=== PATIENT | female | born 2000 | race Caucasian/White ===

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

== ENCOUNTER 2020-12-21 13:35 | Emergency (ER) | payer OTHER ==
[2020-12-21 15:59] VITALS: TEMP 99.7
[2020-12-21] MEDS ORDERED: DIPH,PERTUS(ACELL)TETVAC-LF 0.5 ML VIAL IM ONE (16:35)
[2020-12-21] MEDS ORDERED: SODIUM CHLORIDE 0.9% 1,000 ML IV STA (16:35)
[2020-12-21] MEDS ORDERED: HYDROcodone/APAP 5-325MG 1 EACH TAB PO STA (16:37)
[2020-12-21] MEDS ORDERED: KETOROLAC 15 MG/ML 1 ML VIAL IVP STA (16:37)
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
[2020-12-21 17:08] LABS: Basophils % (A) 0 %; Eosinophils # (A) 0.1 k/uL (0-0.7); Eosinophils % (A) 1 %; HCT 40.7 % (34.0-46.0); HGB 13.8 gm/dL (11.4-16.0); Lymphocytes # (A) 2.8 k/uL (1.0-4.8); Lymphocytes % (A) 29 %; MCH 29.4 pg (25.0-35.0); MCHC 33.9 g/dL (31.0-37.0); MCV 86.8 fL (80.0-100.0); Mean Platelet Volume 7.9; Monocytes # (A) 0.4 k/uL (0-1.0); Monocytes % (A) 4 %; Neutrophils # (A) 6.5 k/uL (1.3-7.7); Neutrophils % (A) 65 %; Platelet Count 278 k/uL (150-450); RBC 4.69 m/uL (3.80-5.40); RDW 12.8 % (11.5-15.5)
[2020-12-21 17:17] LABS: ALT 16 U/L (4-34); AST 21 U/L (14-36); African American GFR (CKD) >90 (>60 ml/min/1.73 sqM); Albumin 4.5 g/dL (3.5-5.0); Alkaline Phosphatase 70 U/L (38-126); Anion Gap 10 mmol/L; Blood Urea Nitrogen 9 mg/dL (7-17); Calcium 9.6 mg/dL (8.4-10.2); Carbon Dioxide 22 mmol/L (22-30); Chloride 105 mmol/L (98-107); Glucose 104 mg/dL (74-99); Non-African American GFR(CKD) >90 (>60 ml/min/1.73 sqM); Sodium 137 mmol/L (137-145); Total Bilirubin 0.8 mg/dL (0.2-1.3); Total Protein 7.3 g/dL (6.3-8.2)
[2020-12-21 17:21] LABS: INR 0.9 (<1.2); Partial Thromboplastin Time 22.8 sec (22.0-30.0); Prothrombin Time 9.8 sec (9.0-12.0)
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
[2020-12-21 18:10] VITALS: BP 103/64; PULSE 64; RESP 20
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
[2020-12-21 18:28] LABS: Appearance,Urine Clear (Clear); Bilirubin,Urine Negative (Negative); Blood,Urine Negative (Negative); Color,Urine Light Yellow; Glucose,Urine (UA) Negative (Negative); Ketones,Urine Negative (Negative); Leukocyte Esterase,Urine Negative (Negative); Nitrite,Urine Negative (Negative); Protein,Urine Negative (Negative); Specific Gravity,Urine 1.008 (1.001-1.035); Urobilinogen,Urine <2.0 mg/dL (<2.0)
[2020-12-21 18:40] LABS: Amphetamine Screen,Urine Not Detected (NotDetected); Barbiturate Screen,Urine Not Detected (NotDetected); Benzodiazepines Screen,Urine Not Detected (NotDetected); Cocaine Screen,Urine Not Detected (NotDetected); Methadone Screen, Urine Not Detected (NotDetected); Opiate Screen,Urine Detected (NotDetected); Oxycodone Screen, Urine Not Detected (NotDetected); Phencyclidine Screen,Urine Not Detected (NotDetected); Tricyclic Antidepressant,Urine Not Detected (NotDetected); Urn Cannabinoid Scrn Detected (NotDetected)
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
== END 2020-12-21 20:06 | disposition left against medical advice (07) ==
LOC: EC 13:35
DX: S02.2XXA Fracture of nasal bones, initial encounter for closed fracture (principal); S30.0XXA Contusion of lower back and pelvis, initial encounter; S60.021A Contusion of right index finger without damage to nail, initial encounter; S60.031A Contusion of right middle finger without damage to nail, initial encounter; S00.12XA Contusion of left eyelid and periocular area, initial encounter; S80.211A Abrasion, right knee, initial encounter; S80.212A Abrasion, left knee, initial encounter; S70.211A Abrasion, right hip, initial encounter; F12.90 Cannabis use, unspecified, uncomplicated; V48.6XXA Car passenger injured in noncollision transport accident in traffic accident, initial encounter; Y92.410 Unspecified street and highway as the place of occurrence of the external cause
CPT/HCPCS: 36415; 93005; 80053; 84484; 85025; 85610; 85730; 81003; 81025; 80306; 72110; 72170; 73130; 71045; 72125; 70486; 70450; 99284; 96374; 96361; J1885

== ENCOUNTER 2022-08-28 05:18 | Emergency (ER) | payer OTHER ==
[2022-08-28] MEDS ORDERED: LORazepam 2 MG/ML INJ IV STA ×3 (05:21→11:51)
[2022-08-28] MEDS ORDERED: SODIUM CHLORIDE 0.9% 1,000 ML IV STA ×2 (05:21)
[2022-08-28] MEDS ORDERED: diphenhydrAMINE 50 MG/ML 1 ML VIAL IVP STA (05:36)
[2022-08-28] MEDS ORDERED: ZIPRASIDONE 20 MG VIAL IM STA (05:56)
[2022-08-28 05:57] LABS: ALT 22 U/L (4-34); AST 26 U/L (14-36); African American GFR (CKD) >90 (>60 ml/min/1.73 sqM); Albumin 4.6 g/dL (3.5-5.0); Alkaline Phosphatase 50 U/L (38-126); Anion Gap 14 mmol/L; Blood Urea Nitrogen 10 mg/dL (7-17); Carbon Dioxide 20 mmol/L (22-30); Chloride 109 mmol/L (98-107); Glucose 117 mg/dL (74-99); Lipase 39 U/L (23-300); Magnesium 1.8 mg/dL (1.6-2.3); Non-African American GFR(CKD) >90 (>60 ml/min/1.73 sqM); Phosphorus 4.7 mg/dL (2.5-4.5); Potassium 4.1 mmol/L (3.5-5.1); Sodium 143 mmol/L (137-145); Total Bilirubin 0.2 mg/dL (0.2-1.3); Total Protein 7.4 g/dL (6.3-8.2)
--- NOTE | 2022-08-28 05:57 | ED ---
Altered Mental Status HPI - General Source: RN notes reviewed, old records reviewed Limitations: no limitations - History of Present Illness MD Complaint: altered mental status, confusion, intoxication -: unknown Severity: severe Consistency of Symptoms: getting worse Context: alcohol abuse, drug abuse, history of similar presentation Associated Symptoms: denies other symptoms Treatments Prior to Arrival: IV fluid <Mayo Salcido - Last Filed: 08/28/22 06:16> <Meagan Yu - Last Filed: 08/31/22 21:01> - General Stated Complaint: ETOH, Right Leg Laceration Time Seen by Provider: 08/28/22 05:19 - History of Present Illness Initial Comments: This is a 22-year-old female DF for evaluation. This patient Dese for evaluation regards to severe psychiatric illness severe intoxication. Patient is not taking anything that makes sense here in the [place] and screaming incoherently needing a restraint both physically and chemically (Mayo Salcido) - Related Data Home Medications Medication Instructions Recorded Confirmed Iron 18 mg PO DAILY 02/13/19 08/30/22 Vit No.180/Iron/Folic 1 each PO DAILY 06/07/19 08/30/22 [ Plus Tablet] ARIPiprazole [Abilify] 15 mg PO DAILY 08/30/22 08/30/22 Prazosin [Minipress] 2 mg PO HS 08/30/22 08/30/22 busPIRone HCl [Buspar] 5 mg PO BID 08/30/22 08/30/22 hydrOXYzine pamoate [Vistaril] 50 mg PO HS 08/30/22 08/30/22 Allergies Allergy/AdvReac Type Severity Reaction Status Date / Time Penicillins Allergy Rash/Hives Verified 08/30/22 00:38 Review of Systems ROS Other: All systems not noted in ROS Statement are negative. <Mayo Salcido - Last Filed: 08/28/22 06:16> ROS Other: All systems not noted in ROS Statement are negative. <Meagan Yu - Last Filed: 08/31/22 21:01> ROS Statement: Those systems with pertinent positive or pertinent negative responses have been documented in the HPI. Past Medical History Past Medical History: No Reported History Additional Past Medical History / Comment(s): Anemia History of Any Multi-Drug Resistant Organisms: None Reported Past Surgical History: No Surgical Hx Reported Past Anesthesia/Blood Transfusion Reactions: No Reported Reaction Past Psychological History: Anxiety, Depression Smoking Status: Never smoker Past Alcohol Use History: None Reported Past Drug Use History: Marijuana - Past Family History Father History Unknown: Yes Family Medical History: No Reported History <Mayo Salcido - Last Filed: 08/28/22 06:16> General Exam Limitations: altered mental status, physical limitation General appearance: alert, appears intoxicated, anxious, in distress Head exam: Present: atraumatic, normocephalic, normal inspection Eye exam: Present: normal appearance, PERRL, EOMI. Absent: scleral icterus, conjunctival injection, periorbital swelling ENT exam: Present: normal exam, mucous membranes moist Neck exam: Present: normal inspection. Absent: tenderness, meningismus, lymphadenopathy Respiratory exam: Present: normal lung sounds bilaterally. Absent: respiratory distress, wheezes, rales, rhonchi, stridor Cardiovascular Exam: Present: regular rate, normal rhythm, normal heart sounds. Absent: systolic murmur, diastolic murmur, rubs, gallop, clicks GI/Abdominal exam: Present: soft, normal bowel sounds. Absent: distended, tenderness, guarding, rebound, rigid Extremities exam: Present: normal inspection, full ROM, normal capillary refill. Absent: tenderness, pedal edema, joint swelling, calf tenderness Back exam: Present: normal inspection Neurological exam: Present: alert, oriented X3, CN II-XII intact Psychiatric exam: Present: normal affect, normal mood Skin exam: Present: warm, dry, intact, normal color. Absent: rash <Mayo Salcido Manan - Last Filed: 08/28/22 06:16> Limitations: altered mental status, physical limitation General appearance: alert, appears intoxicated, anxious, in distress Head exam: Present: atraumatic, normocephalic, normal inspection Eye exam: Present: normal appearance, PERRL, EOMI. Absent: scleral icterus, conjunctival injection, periorbital swelling ENT exam: Present: normal exam, mucous membranes moist Neck exam: Present: normal inspection. Absent: tenderness, meningismus, lymphadenopathy Respiratory exam: Present: normal lung sounds bilaterally. Absent: respiratory distress, wheezes, rales, rhonchi, stridor Cardiovascular Exam: Present: regular rate, normal rhythm, normal heart sounds. Absent: systolic murmur, diastolic murmur, rubs, gallop, clicks GI/Abdominal exam: Present: soft, normal bowel sounds. Absent: distended, tenderness, guarding, rebound, rigid Extremities exam: Present: full ROM, normal capillary refill. Absent: tenderness, pedal edema, joint swelling, calf tenderness Back exam: Present: normal inspection Neurological exam: Present: alert Psychiatric exam: Present: agitated Skin exam: Present: other (Multiple lacerations to the right lower extremity, three of which have visible subcutaneous tissue, measuring approximately 5 cm, 6 cm, and 2 cm respectively.) <Meagan Yu - Last Filed: 08/31/22 21:01> - General Exam Comments Initial Comments: Patient has small lacerations throughout entire body, right hip right in both legs (Mayo Salcido) Course <Mayo Salcido - Last Filed: 08/28/22 06:16> Vital Signs 08/28/22 08/28/22 08/28/22 05:21 07:49 12:47 Temperature 98.6 F 98.4 F Pulse Rate 128 H 78 81 Respiratory 16 20 17 Rate Blood Pressure 136/70 101/61 94/55 O2 Sat by Pulse 98 98 97 Oximetry - Reevaluation(s) Reevaluation #1: 08/28/22 06:18 Record is reviewed (Mayo Salcido) Reevaluation #2: 08/28/22 06:18 Patient is needing both hcemical and physical restraints (Mayo Salcido) Reevaluation #4: 08/28/22 06:18 Was pt. sent in by a medical professional or institution? @ -no Did you speak to anyone other than the patient for history? @ -no Did you review nursing and triage notes? @ -agree Were old charts reviewed? @ -yes Differential Diagnosis? @ -prior EKG interpreted by me (3pts min.)? @ -yes X-rays interpreted by me (1pt min.)? @ -yes CT interpreted by me (1pt min.)? @ -no U/S interpreted by me (1pt. min.)? @ -no What testing was considered but not performed? (CT, X-rays, U/S, labs)? Why? @ -no What meds were considered but not given? Why? @ -no Did you discuss the management of the patient with other professionals? @ -no Did you reconcile home meds? @ -no Was smoking cessation discussed for >3mins.? @ -no Was critical care preformed (if so, how long)? @ -no Were there social determinants of health that impacted care today? How? (Homelessness, low income, unemployed, alcoholism, drug addiction, transportation, low edu. Level, literacy, decrease access to med. care, penitentiary, rehab)? @ -no Was there de-escalation of care discussed even if they declined? (Discuss DNR or withdrawal of care, Hospice)? @ -no What co-morbidities impacted this encounter? (DM, HTN, Smoking, COPD, CAD, Cancer, CVA, Hep., AIDS, mental health diagnosis, sleep apnea, morbid obesity)? @ -none Was patient admitted / discharged? @ - Undiagnosed new problem with uncertain prognosis? @ -no Drug Therapy requiring intensive monitoring for toxicity (Heparin, Nitro, Insulin, Cardizem)? @ -no Were any procedures done? @ -no Diagnosis/symptom? @ - Acute, or Chronic, or Acute on Chronic? @ -acute Uncomplicated (without systemic symptoms) or Complicated (systemic symptoms)? @ -complicated Side effects of treatment? @ -no Exacerbation, Progression, or Severe Exacerbation] @ -no Poses a threat to life or bodily function? @ -yes (Mayo Salcido) Procedures - Laceration Laceration #1 Consent Obtained: verbal consent Indication: laceration Site: lower extremity Size (cm): 5 Description: linear Depth: simple, single layer Anesthetic Used: lidocaine 1% Anesthesia Technique: local infiltration Amount (mls): 5 Pre-repair: wound explored, irrigated extensively Type of Sutures: nylon Size of Sutures: 4-0 Number of Sutures: 5 Technique: simple, interrupted Laceration #2 Consent Obtained: verbal consent Indication: laceration Site: lower extremity Size (cm): 6 Description: linear Depth: simple, single layer Anesthetic Used: lidocaine 1% Anesthesia Technique: local infiltration Amount (mls): 5 Pre-repair: wound explored, irrigated extensively Type of Sutures: nylon Size of Sutures: 4-0 Number of Sutures: 6 Technique: simple, interrupted Laceration #3 Consent Obtained: verbal consent Indication: laceration Site: lower extremity Size (cm): 2 Description: linear Depth: simple, single layer Anesthetic Used: lidocaine 1% Anesthesia Technique: local infiltration Amount (mls): 3 Pre-repair: wound explored, irrigated extensively Type of Sutures: nylon Size of Sutures: 4-0 Number of Sutures: 2 Technique: simple, interrupted <Meagan Yu - Last Filed: 08/31/22 21:01> Medical Decision Making - Lab Data Result diagrams: 08/28/22 05:37 <Mayo Salcido - Last Filed: 08/28/22 06:16> - Lab Data Result diagrams: 08/28/22 05:37 08/28/22 05:37 - Radiology Data Radiology results: report reviewed, image reviewed <Meagan Yu - Last Filed: 08/31/22 21:01> - Medical Decision Making This is a 22-year-old female who presents to the emergency department for alcohol intoxication. Case signed out to me by ED attending, Dr. Salcido. At that time, computed tomography scan of the brain/c-spine and abdomen/pelvis were pending. All imaging revealed no acute findings. She did have multiple lacerations to the right lower extremity. She allowed me to repair 3 of them. These were the deepest wounds with visible subcutaneous tissue. There were other multiple lacerations that were smaller and were still fairly deep. I strongly encouraged the patient to allow me to do sutures to these wounds as well, however she declined. We did review risks of infection, and the patient expresses understanding. She did not allow me to evaluate her upper extremities, and I cannot rule out the possibility of deeper lacerations to these areas. She was picked up by her friend, Indira, and discharged home in stable condition with her friend. She is instructed to return in 7-10 days for suture removal. (Meagan Yu) - Lab Data Lab Results 08/28/22 08/28/22 08/28/22 Range/Units 05:37 05:37 06:39 WBC 9.8 (3.8-10.6) k/uL RBC 4.49 (3.80-5.40) m/uL Hgb 12.9 (11.4-16.0) gm/dL Hct 39.2 (34.0-46.0) % MCV 87.4 (80.0-100.0) fL MCH 28.7 (25.0-35.0) pg MCHC 32.9 (31.0-37.0) g/dL RDW 12.7 (11.5-15.5) % Plt Count 364 (150-450) k/uL MPV 8.0 Neutrophils % 43 % Lymphocytes % 48 % Monocytes % 3 % Eosinophils % 2 % Basophils % 0 % Neutrophils # 4.2 (1.3-7.7) k/uL Lymphocytes # 4.7 (1.0-4.8) k/uL Monocytes # 0.3 (0-1.0) k/uL Eosinophils # 0.2 (0-0.7) k/uL Basophils # 0.0 (0-0.2) k/uL Sodium 143 (137-145) mmol/L Potassium 4.1 (3.5-5.1) mmol/L Chloride 109 H (98-107) mmol/L Carbon Dioxide 20 L (22-30) mmol/L Anion Gap 14 mmol/L BUN 10 (7-17) mg/dL Creatinine 0.66 (0.52-1.04) mg/dL Est GFR (CKD-EPI)AfAm >90 (>60 ml/min/1.73 sqM) Est GFR (CKD-EPI)NonAf >90 (>60 ml/min/1.73 sqM) Glucose 117 H (74-99) mg/dL Calcium 9.0 (8.4-10.2) mg/dL Phosphorus 4.7 H (2.5-4.5) mg/dL Magnesium 1.8 (1.6-2.3) mg/dL Total Bilirubin 0.2 (0.2-1.3) mg/dL AST 26 (14-36) U/L ALT 22 (4-34) U/L Alkaline Phosphatase 50 (38-126) U/L Total Protein 7.4 (6.3-8.2) g/dL Albumin 4.6 (3.5-5.0) g/dL Lipase 39 (23-300) U/L Urine Color Colorless Urine Appearance Clear (Clear) Urine pH 5.5 (5.0-8.0) Ur Specific [place] 1.003 (1.001-1.035) Urine Protein Negative (Negative) Urine Glucose (UA) Negative (Negative) Urine Ketones Negative (Negative) Urine Blood Small H (Negative) Urine Nitrite Negative (Negative) Urine Bilirubin Negative (Negative) Urine Urobilinogen <2.0 (<2.0) mg/dL Ur Leukocyte Esterase Negative (Negative) Urine WBC <1 (0-5) /hpf Urine HCG, Qual (Not Detectd) Urine Opiates Screen Not Detected (NotDetected) Ur Oxycodone Screen Not Detected (NotDetected) Urine Methadone Screen Not Detected (NotDetected) Ur Propoxyphene Screen Not Detected (NotDetected) Ur Barbiturates Screen Not Detected (NotDetected) U Tricyclic Antidepress Not Detected (NotDetected) Ur Phencyclidine Scrn Not Detected (NotDetected) Ur Amphetamines Screen Not Detected (NotDetected) U Methamphetamines Scrn Not Detected (NotDetected) U Benzodiazepines Scrn Not Detected (NotDetected) Urine Cocaine Screen Detected H (NotDetected) U Marijuana (THC) Screen Detected H (NotDetected) Serum Alcohol 285 H* mg/dL 08/28/22 Range/Units 06:39 WBC (3.8-10.6) k/uL RBC (3.80-5.40) m/uL Hgb (11.4-16.0) gm/dL Hct (34.0-46.0) % MCV (80.0-100.0) fL MCH (25.0-35.0) pg MCHC (31.0-37.0) g/dL RDW (11.5-15.5) % Plt Count (150-450) k/uL MPV Neutrophils % % Lymphocytes % % Monocytes % % Eosinophils % % Basophils % % Neutrophils # (1.3-7.7) k/uL Lymphocytes # (1.0-4.8) k/uL Monocytes # (0-1.0) k/uL Eosinophils # (0-0.7) k/uL Basophils # (0-0.2) k/uL Sodium (137-145) mmol/L Potassium (3.5-5.1) mmol/L Chloride (98-107) mmol/L Carbon Dioxide (22-30) mmol/L Anion Gap mmol/L BUN (7-17) mg/dL Creatinine (0.52-1.04) mg/dL Est GFR (CKD-EPI)AfAm (>60 ml/min/1.73 sqM) Est GFR (CKD-EPI)NonAf (>60 ml/min/1.73 sqM) Glucose (74-99) mg/dL Calcium (8.4-10.2) mg/dL Phosphorus (2.5-4.5) mg/dL Magnesium (1.6-2.3) mg/dL Total Bilirubin (0.2-1.3) mg/dL AST (14-36) U/L ALT (4-34) U/L Alkaline Phosphatase (38-126) U/L Total Protein (6.3-8.2) g/dL Albumin (3.5-5.0) g/dL Lipase (23-300) U/L Urine Color Urine Appearance (Clear) Urine pH (5.0-8.0) Ur Specific [place] (1.001-1.035) Urine Protein (Negative) Urine Glucose (UA) (Negative) Urine Ketones (Negative) Urine Blood (Negative) Urine Nitrite (Negative) Urine Bilirubin (Negative) Urine Urobilinogen (<2.0) mg/dL Ur Leukocyte Esterase (Negative) Urine WBC (0-5) /hpf Urine HCG, Qual Not Detected (Not Detectd) Urine Opiates Screen (NotDetected) Ur Oxycodone Screen (NotDetected) Urine Methadone Screen (NotDetected) Ur Propoxyphene Screen (NotDetected) Ur Barbiturates Screen (NotDetected) U Tricyclic Antidepress (NotDetected) Ur Phencyclidine Scrn (NotDetected) Ur Amphetamines Screen (NotDetected) U Methamphetamines Scrn (NotDetected) U Benzodiazepines Scrn (NotDetected) Urine Cocaine Screen (NotDetected) U Marijuana (THC) Screen (NotDetected) Serum Alcohol mg/dL Disposition <Mayo Salcido - Last Filed: 08/28/22 06:16> Is patient prescribed a controlled substance at d/c from ED?: No <Meagan Yu - Last Filed: 07/05/23 21:01> Clinical Impression: Laceration of right lower leg, Alcohol intoxication Disposition: HOME SELF-CARE Instructions (If sedation given, give patient instructions): Care For Your Stitches (ED) Additional Instructions: Return to the emergency department with any new, worsening, or concerning symptoms and in 7-10 days for removal of your stitches. Alternate with ibuprofen and Tylenol as needed for pain relief. Take the Zofran up to every 8 hours as needed for nausea and vomiting. Follow up with your primary care provider in 1- 2 days. Referrals: None,Stated [Primary Care Provider] - 1-2 days
[2022-08-28 06:05] LABS: Alcohol 285 mg/dL
[2022-08-28 06:35] LABS: Basophils % (A) 0 %; Eosinophils # (A) 0.2 k/uL (0-0.7); Eosinophils % (A) 2 %; HCT 39.2 % (34.0-46.0); HGB 12.9 gm/dL (11.4-16.0); Lymphocytes # (A) 4.7 k/uL (1.0-4.8); Lymphocytes % (A) 48 %; MCH 28.7 pg (25.0-35.0); MCHC 32.9 g/dL (31.0-37.0); MCV 87.4 fL (80.0-100.0); Monocytes # (A) 0.3 k/uL (0-1.0); Monocytes % (A) 3 %; Neutrophils # (A) 4.2 k/uL (1.3-7.7); Neutrophils % (A) 43 %; Platelet Count 364 k/uL (150-450); RBC 4.49 m/uL (3.80-5.40); RDW 12.7 % (11.5-15.5); WBC 9.8 k/uL (3.8-10.6)
[2022-08-28] MEDS ORDERED: HALOPERIDOL LACTATE 5 MG/ML 1 ML VIAL IM STA (06:42)
[2022-08-28 07:35] LABS: Appearance,Urine Clear (Clear); Bilirubin,Urine Negative (Negative); Blood,Urine Small (Negative); Color,Urine Colorless; Glucose,Urine (UA) Negative (Negative); Ketones,Urine Negative (Negative); Leukocyte Esterase,Urine Negative (Negative); Nitrite,Urine Negative (Negative); PH, Urine 5.5 (5.0-8.0); Protein,Urine Negative (Negative); Specific Gravity,Urine 1.003 (1.001-1.035); Urobilinogen,Urine <2.0 mg/dL (<2.0); WBC,Urine <1 /hpf (0-5)
[2022-08-28] MEDS ORDERED: LIDOCAINE 1% INJ 10MG/ML (30 ML VIAL-PF) SQ ONE (08:03)
[2022-08-28 08:22] LABS: Amphetamine Screen,Urine Not Detected (NotDetected); Barbiturate Screen,Urine Not Detected (NotDetected); Benzodiazepines Screen,Urine Not Detected (NotDetected); Cocaine Screen,Urine Detected (NotDetected); Methadone Screen, Urine Not Detected (NotDetected); Opiate Screen,Urine Not Detected (NotDetected); Oxycodone Screen, Urine Not Detected (NotDetected); Phencyclidine Screen,Urine Not Detected (NotDetected); Tricyclic Antidepressant,Urine Not Detected (NotDetected); Urn Cannabinoid Scrn Detected (NotDetected)
--- NOTE | 2022-08-28 09:09 | CT ---
EXAMINATION TYPE: CT brain cspine wo con DATE OF EXAM: 08/28/2022 COMPARISON: 12/21/2020 HISTORY: ETOH. Right leg laceration. Trauma CT DLP: 1580.0 mGycm, Automated exposure control for dose reduction was used. CONTRAST: None CT of the brain is performed utilizing 3 mm thick sections through the posterior fossa and 3 mm thick sections through the remaining calvarium. Study is performed within 24 hours of arrival to the hospital. No abnormal hyperdensity is present to suggest an acute intracranial hemorrhage. No mass lesion is evident. No acute infarcts are evident. Ventricles and sulci are appropriate for the patient age. Paranasal sinuses and mastoid air cells within the [id number] are clear. IMPRESSIONS: 1. No acute intracranial process. Follow-up MRI can be performed as clinically indicated. CT cervical spine. COMPARISON: None CT of the cervical spine is performed in the axial plane at 2 mm thick sections. Reconstructed image s in the coronal, and sagittal plane are reviewed on the computer. No acute fractures are evident. Vertebral body alignment is normal. Disc heights are preserved. Vertebral body heights are preserved. No spinal canal stenosis is evident. No neural foraminal stenosis is evident. IMPRESSIONS: 1. No acute osseous abnormality cervical spine
--- NOTE | 2022-08-28 10:01 | CT ---
EXAMINATION TYPE: CT ChestAbdPelvis w con DATE OF EXAM: 08/28/2022 INDICATION: Trauma. ETOH. Right leg laceration COMPARISON: None CT DLP: 1384..2 mGycm CONTRAST: Performed without Oral Contrast and with IV Contrast, patient injected with 100 ml mL of Isovue 300. TECHNIQUE: Axial images at 5 mm thick sections. Reconstructed images in the coronal plane. Delayed images through the kidneys. FINDINGS: CT CHEST: Portion of the thyroid visualized is normal. No suspicious lung nodules or focal infiltrates are present. No pneumothorax is evident. No enlarged mediastinal or hilar adenopathy is evident. The ascending aorta diameter at the level of the main pulmonary artery is 2.3 cm. The main pulmonary artery diameter at the bifurcation is 2.[address] ABDOMEN: Liver: Normal Spleen: Normal Pancreas: Normal Adrenal glands: The adrenal glands are normal. Gallbladder: Normal Kidneys: No masses are evident. No hydronephrosis is present. No cysts are present. Aorta: Normal Inferior vena cava: Normal. CT PELVIS: Loops of bowel within the abdomen and pelvis are normal. Study is lateral contrast Limited bowel evaluation. No suspicious dilated loops of bowel are evident. No free air is present. Appendix: Normal as visualized. Urinary bladder: Normal. Genitourinary structures: Uterus is normal. Adnexa are within normal limits. Minimal free fluid is in the cul-de-sac which can be physiologic. Osseous structures: No suspicious lytic or sclerotic lesions. No acute fractures are evident. Ribs ap pear intact. Vertebral body heights are preserved. IMPRESSIONS: 1. No acute posttraumatic changes CT chest abdomen pelvis
[2022-08-28] MEDS ORDERED: KETOROLAC 15 MG/ML 1 ML VIAL IVP STA (11:51)
[2022-08-28] MEDS ORDERED: ONDANSETRON 4 MG ODT STARTER PACK 2 TAB BTL PO STA (12:34)
[2022-08-28] MEDS ORDERED: IBUPROFEN 600 MG STARTER PACK 4 TAB BTL PO STA (12:34)
[2022-08-28 12:51] VITALS: BP 94/55; PULSE 81; RESP 17; TEMP 98.4
== END 2022-08-28 12:51 | disposition home or self-care (01) ==
LOC: EC 05:18
DX: S81.811A Laceration without foreign body, right lower leg, initial encounter (principal); F10.129 Alcohol abuse with intoxication, unspecified; F41.9 Anxiety disorder, unspecified; F32.A Depression, unspecified; F12.90 Cannabis use, unspecified, uncomplicated; Z88.0 Allergy status to penicillin; Z79.899 Other long term (current) drug therapy; X58.XXXA Exposure to other specified factors, initial encounter
CPT/HCPCS: 36415; 80053; 83690; 83735; 84100; 85025; 81001; 81025; 80306; 72125; 70450; 71260; 74177; 99285; 96374; 96375 ×2; 96376; 96361; 96372; 12005; G0480; J2060; J1200; J2001; J3486; J1885; S0119; Q9967; 80320

== ENCOUNTER 2022-08-30 00:24 | Inpatient (IN) | payer MEDICAID, OTHER ==
--- NOTE | 2022-08-30 02:50 | ED ---
Psych HPI - General Chief Complaint: Psychiatric Symptoms Stated Complaint: Petition Time Seen by Provider: 08/30/22 00:59 Source: patient Mode of arrival: ambulatory - History of Present Illness Initial Comments: This patient is a 22-year-old woman here to have evaluation for depressed mood and recurrent thoughts of suicide. Complaint: suicidal ideation -: days(s) Associated Psychiatric Symptoms: suicidal ideation Quality: changing over time Improves With: none Worsens With: none Context: significant life stressor Associated Symptoms: denies other symptoms - Related Data Home Medications Medication Instructions Recorded Confirmed Iron 18 mg PO DAILY 02/13/19 08/30/22 Vit No.180/Iron/Folic 1 each PO DAILY 06/07/19 08/30/22 [ Plus Vitamin-Mineral] Previous Rx's Medication Instructions Recorded ARIPiprazole [Abilify Maintena] 300 mg PO QMONTHLY 1 Days #1 each 09/02/22 ARIPiprazole [Abilify] 15 mg PO DAILY 12 Days #12 tab 09/02/22 Naltrexone HCl [Revia] 50 mg PO DAILY 30 Days #30 tab 09/02/22 Nicotine Gum (Polacrilex) 2 mg BUCCAL Q2HR PRN 10 Days #60 09/02/22 [Nicorette] pieceofgum Prazosin [Minipress] 2 mg PO HS 30 Days #60 cap 09/02/22 hydrOXYzine pamoate [Vistaril] 50 mg PO HS 30 Days #30 cap 09/02/22 traZODone HCL [Desyrel] 100 mg PO HS 30 Days #30 tab 09/02/22 Allergies Allergy/AdvReac Type Severity Reaction Status Date / Time Penicillins Allergy Rash/Hives Verified 08/30/22 00:38 Review of Systems ROS Statement: Those systems with pertinent positive or pertinent negative responses have been documented in the HPI. ROS Other: All systems not noted in ROS Statement are negative. Constitutional: Denies: fever Respiratory: Denies: cough, dyspnea Cardiovascular: Denies: chest pain, syncope Gastrointestinal: Denies: abdominal pain, vomiting, diarrhea Genitourinary: Denies: dysuria, hematuria Musculoskeletal: Denies: back pain Skin: Denies: rash Neurological: Denies: headache Psychiatric: Reports: depression, suicidal thoughts. Denies: auditory hallucinations, visual hallucinations, homicidal thoughts Past Medical History Past Medical History: No Reported History Additional Past Medical History / Comment(s): Anemia History of Any Multi-Drug Resistant Organisms: None Reported Past Surgical History: No Surgical Hx Reported Past Anesthesia/Blood Transfusion Reactions: No Reported Reaction Past Psychological History: Anxiety, Depression Smoking Status: Vaper Past Alcohol Use History: Occasional Past Drug Use History: Marijuana - Past Family History Father History Unknown: Yes Family Medical History: No Reported History General Exam Limitations: no limitations General appearance: alert, in no apparent distress Head exam: Present: atraumatic, normocephalic Eye exam: Present: normal appearance. Absent: scleral icterus, conjunctival injection Neck exam: Present: normal inspection Respiratory exam: Present: normal lung sounds bilaterally. Absent: respiratory distress, wheezes, rales, rhonchi, stridor Cardiovascular Exam: Present: regular rate, normal rhythm, normal heart sounds. Absent: systolic murmur, diastolic murmur, rubs, gallop GI/Abdominal exam: Present: soft. Absent: distended, tenderness, guarding, rebound, rigid, mass Extremities exam: Present: normal inspection, normal capillary refill Neurological exam: Present: alert, normal gait Psychiatric exam: Present: depressed, suicidal ideation. Absent: agitated, flat affect, manic, homicidal ideation Skin exam: Present: warm, dry, intact, normal color. Absent: rash Course Vital Signs 08/30/22 08/30/22 00:39 05:05 Temperature 98.2 F Pulse Rate 68 70 Respiratory 18 18 Rate Blood Pressure 104/61 O2 Sat by Pulse 98 98 Oximetry Medical Decision Making - Medical Decision Making Was pt. sent in by a medical professional or institution (, PA, ROLLER STAKER, urgent care, hospital, or penitentiary...) When possible be specific @ -[No] Did you speak to anyone other than the patient for history (EMS, parent, family, police, friend...)? What history was obtained from this source @ -[No] Did you review nursing and triage notes (agree or disagree)? Why? @ -[I reviewed and agree with nursing and triage notes] Were old charts reviewed (outside hosp., previous admission, EMS record, old EKG, old radiological studies, urgent care reports/EKG's, penitentiary records)? Report findings @ -[No old charts were reviewed] Differential Diagnosis (chest pain, altered mental status, abdominal pain women, abdominal pain men, vaginal bleeding, weakness, fever, dyspnea, syncope, headache, dizziness, GI bleed, back pain, seizure, CVA, palpatations, mental health, musculoskeletal)? @ -[Differential Mental Health Depression, anxiety, bipolar, psychosis, schizophrenia, borderline personality, situational depression, adjustment disorder, behavioral disorder, brain tumor, malingering, substance abuse, encephalopathy, medication reaction, dementia, hypothyroidism, degenerative neurologic disorder, lupus.... This is not meant to be all-inclusive list EKG interpreted by me (3pts min.). @ -[As above] X-rays interpreted by me (1pt min.). @ -[None done] CT interpreted by me (1pt min.). @ -[None done] U/S interpreted by me (1pt. min.). @ -[None done] What testing was considered but not performed or refused? (CT, X-rays, U/S, labs)? Why? @ -[None] What meds were considered but not given or refused? Why? @ -[None] Did you discuss the management of the patient with other professionals (professionals i.e. , PA, ROLLER STAKER, lab, RT, psych nurse, social service technician, copy chief, teacher, chief environmental commitment officer, caser)? Give summary @ -[Case discussed with EPS personnel, who are going to admit the patient for further psychiatric care Was smoking cessation discussed for >3mins.? @ -[No] Was critical care preformed (if so, how long)? @ -[No] Were there social determinants of health that impacted care today? How? (Homelessness, low income, unemployed, alcoholism, drug addiction, transportation, low edu. Level, literacy, decrease access to med. care, care home, rehab)? @ -[No] Was there de-escalation of care discussed even if they declined (Discuss DNR or withdrawal of care, Hospice)? DNR status @ -[No] What co-morbidities impacted this encounter? (DM, HTN, Smoking, COPD, CAD, Cancer, CVA, ARF, Chemo, Hep., AIDS, mental health diagnosis, sleep apnea, morbid obesity)? @ -[None] Was patient admitted / discharged? Hospital course, mention meds given and route, prescriptions, significant lab abnormalities, going to OR and other pertinent info. @ -[Admitted Undiagnosed new problem with uncertain prognosis? @ -[No] Drug Therapy requiring intensive monitoring for toxicity (Heparin, Nitro, Insulin, Cardizem)? @ -[No] Were any procedures done? @ -[No] Diagnosis/symptom? @ -[Acute mood disorder with suicidal ideation Acute, or Chronic, or Acute on Chronic? @ -[default] Uncomplicated (without systemic symptoms) or Complicated (systemic symptoms)? @ -[Uncomplicated Side effects of treatment? @ -[No] Exacerbation, Progression, or Severe Exacerbation? @ -[No] Poses a threat to life or bodily function? How? (Chest pain, [place], [place], pneumonia, PE, COPD, DKA, ARF, appy, cholecystitis, CVA, Diverticulitis, Homicidal, Suicidal, threat to staff... and all critical care pts) @ -[Yes untreated mood disorder may lead to suicide attempt/ - Lab Data Result diagrams: 09/01/22 00:25 09/01/22 00:25 Lab Results 08/30/22 08/30/22 08/30/22 Range/Units 02:49 02:49 02:49 Urine Color Yellow Urine Appearance Cloudy H (Clear) Urine pH 5.5 (5.0-8.0) Ur Specific [place] 1.021 (1.001-1.035) Urine Protein Negative (Negative) Urine Glucose (UA) Negative (Negative) Urine Ketones Negative (Negative) Urine Blood Negative (Negative) Urine Nitrite Negative (Negative) Urine Bilirubin Negative (Negative) Urine Urobilinogen <2.0 (<2.0) mg/dL Ur Leukocyte Esterase Moderate H (Negative) Urine RBC 2 (0-5) /hpf Urine WBC 31 H (0-5) /hpf Ur Squamous Epith Cells 8 H (0-4) /hpf Amorphous Sediment Rare H (None) /hpf Urine Bacteria Occasional H (None) /hpf Hyaline Casts 7 H (0-2) /lpf Urine Mucus Moderate H (None) /hpf Urine HCG, Qual Not Detected (Not Detectd) Urine Opiates Screen Not Detected (NotDetected) Ur Oxycodone Screen Not Detected (NotDetected) Urine Methadone Screen Not Detected (NotDetected) Ur Propoxyphene Screen Not Detected (NotDetected) Ur Barbiturates Screen Not Detected (NotDetected) U Tricyclic Antidepress Not Detected (NotDetected) Ur Phencyclidine Scrn Not Detected (NotDetected) Ur Amphetamines Screen Not Detected (NotDetected) U Methamphetamines Scrn Not Detected (NotDetected) U Benzodiazepines Scrn Detected H (NotDetected) Urine Cocaine Screen Detected H (NotDetected) U Marijuana (THC) Screen Detected H (NotDetected) Coronavirus (PCR) (Not Detectd) 08/30/22 Range/Units 04:18 Urine Color Urine Appearance (Clear) Urine pH (5.0-8.0) Ur Specific [place] (1.001-1.035) Urine Protein (Negative) Urine Glucose (UA) (Negative) Urine Ketones (Negative) Urine Blood (Negative) Urine Nitrite (Negative) Urine Bilirubin (Negative) Urine Urobilinogen (<2.0) mg/dL Ur Leukocyte Esterase (Negative) Urine RBC (0-5) /hpf Urine WBC (0-5) /hpf Ur Squamous Epith Cells (0-4) /hpf Amorphous Sediment (None) /hpf Urine Bacteria (None) /hpf Hyaline Casts (0-2) /lpf Urine Mucus (None) /hpf Urine HCG, Qual (Not Detectd) Urine Opiates Screen (NotDetected) Ur Oxycodone Screen (NotDetected) Urine Methadone Screen (NotDetected) Ur Propoxyphene Screen (NotDetected) Ur Barbiturates Screen (NotDetected) U Tricyclic Antidepress (NotDetected) Ur Phencyclidine Scrn (NotDetected) Ur Amphetamines Screen (NotDetected) U Methamphetamines Scrn (NotDetected) U Benzodiazepines Scrn (NotDetected) Urine Cocaine Screen (NotDetected) U Marijuana (THC) Screen (NotDetected) Coronavirus (PCR) Not Detected (Not Detectd) Disposition Clinical Impression: Suicidal ideation, Mood disorder Disposition: ADMITTED IP TO THIS HOSP Condition: Stable
[2022-08-30 03:32] LABS: Amorphous Sediment,Urine Rare /hpf; Appearance,Urine Cloudy (Clear); Bacteria,Urine Occasional /hpf; Bilirubin,Urine Negative (Negative); Blood,Urine Negative (Negative); Color,Urine Yellow; Glucose,Urine (UA) Negative (Negative); Hyaline Casts,Urine 7 /lpf (0-2); Ketones,Urine Negative (Negative); Leukocyte Esterase,Urine Moderate (Negative); Mucus,Urine Moderate /hpf; Nitrite,Urine Negative (Negative); PH, Urine 5.5 (5.0-8.0); Protein,Urine Negative (Negative); RBC,Urine 2 /hpf (0-5); Specific Gravity,Urine 1.021 (1.001-1.035); Squamous Epithelial Cell,Urine 8 /hpf (0-4); Urobilinogen,Urine <2.0 mg/dL (<2.0); WBC,Urine 31 /hpf (0-5)
[2022-08-30 03:37] LABS: Amphetamine Screen,Urine Not Detected (NotDetected); Benzodiazepines Screen,Urine Detected (NotDetected); Cocaine Screen,Urine Detected (NotDetected); Opiate Screen,Urine Not Detected (NotDetected); Phencyclidine Screen,Urine Not Detected (NotDetected); Urn Cannabinoid Scrn Detected (NotDetected)
[2022-08-30 03:38] LABS: Barbiturate Screen,Urine Not Detected (NotDetected); Methadone Screen, Urine Not Detected (NotDetected); Oxycodone Screen, Urine Not Detected (NotDetected); Tricyclic Antidepressant,Urine Not Detected (NotDetected)
[2022-08-30] MEDS ORDERED: MAGNESIUM HYDROXIDE 2,400 MG/30 ML CUP PO PRN (04:54)
[2022-08-30] MEDS ORDERED: LORazepam 1 MG TAB PO PRN (04:54)
[2022-08-30] MEDS ORDERED: LORazepam 2 MG/ML INJ IM PRN (05:13)
[2022-08-30] MEDS: IBUPROFEN 600 MG TAB PO PRN ×2 (05:13→19:57)
[2022-08-30] MEDS: ARIPiprazole 15 MG TAB PO SCH (08:53)
[2022-08-30] MEDS: ACETAMINOPHEN TAB 325 MG TAB PO PRN ×2 (08:53→21:16)
[2022-08-30] MEDS: busPIRone HCl 5 MG TAB PO SCH ×2 (08:53→19:56)
[2022-08-30] MEDS ORDERED: NON FORMULARY DRUG (Iron [Iron] 18 MG Tablet) PO SCH (09:00)
[2022-08-30] MEDS ORDERED: NICOTINE 14MG/24HR PATCH TRANSDERM SCH (09:00)
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
[2022-08-30] MEDS: hydrOXYzine pamoate 25 MG CAP PO SCH (19:56)
[2022-08-30] MEDS: PRAZOSIN 1 MG CAP PO SCH (19:56)
[2022-08-30] MEDS ORDERED: PRAZOSIN 1 MG CAP PO SCH (21:00)
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
[2022-08-31] MEDS: busPIRone HCl 5 MG TAB PO SCH (08:59)
[2022-08-31] MEDS: ARIPiprazole 15 MG TAB PO SCH (09:00)
[2022-08-31] MEDS: IBUPROFEN 600 MG TAB PO PRN ×2 (09:02→20:56)
[2022-08-31] MEDS ORDERED: ARIPiprazole IM 400 MG VIAL (NO COST) PHARMACY STOCK IM ONE (10:01)
[2022-08-31] MEDS ORDERED: NALTREXONE HCL 50 MG TAB PO STA (10:41)
[2022-08-31] MEDS: FERROUS SULFATE 325 MG TAB PO SCH (11:48)
--- NOTE | 2022-08-31 11:48 | P.PN ---
Progress Note - Text Progress Note Date: 08/31/22 Interval History: Patient was seen attending group and was directable and agreeable to speak with telegraphic typewriter repairer in the office. Currently, the patient is not reporting any suicidal or homicidal ideation, intention, and/or plan. She reports that she was nonadherent with her medications due to numerous life stressors, especially her legal ones. She clarifies that it has only been 3 weeks since she took her medications and not 3 months. She does acknowledge today that she has an alcohol problem. He does express desire for resources for alcohol cessation. She is not reporting any auditory or visual hallucinations. She is denying any paranoia or other delusions. She has been adherent with her medication is not reporting any prescription side effects but feels that the BuSpar is causing her to feel too sedated. The patient is agreeable to transition to a long-acting Ab ilify maintena to help with adherence. She reports no issues regarding her sleep or appetite. She denies any medical issues or concerns. Mental Status Exam: General Appearance: Patient appears to be stated age is alert, directable, and cooperative. Multiple tattoos. Bandages over multiple lacerations. Behavior: Patient is calmly seated without any agitated behavior. Speech: Patient's speech is fluent and nonpressured. Mood/Affect: Mood is improving mildly, affect is congruent and euthymic. Suicidality/Homicidality: Patient reports no suicidal or homicidal ideation, intention, and/or plan. Perceptions: Patient denies any visual hallucinations and denies any auditory hallucinations Though content/process: There is no evidence of any delusional thought content and thought process is linear and goal-directed. Memory and concentration: AOX3, grossly intact for the purposes of this session Judgment and insight: Improving mildly Vital Signs Temp 97.8 F 08/30/22 06:12 Pulse 81 08/30/22 06:12 Resp 18 08/30/22 06:12 BP 108/64 08/30/22 06:12 Pulse Ox 99 08/30/22 06:12 FiO2 Laboratory Results TSH 3.480 mIU/L (0.465-4.680) 08/31/22 09:03 Urine Color Yellow 08/30/22 02:49 Urine Appearance Cloudy (Clear) H 08/30/22 02:49 Urine pH 5.5 (5.0-8.0) 08/30/22 02:49 Ur Specific [place] 1.021 (1.001-1.035) 08/30/22 02:49 Urine Protein Negative (Negative) 08/30/22 02:49 Urine Glucose (UA) Negative (Negative) 08/30/22 02:49 Urine Ketones Negative (Negative) 08/30/22 02:49 Urine Blood Negative (Negative) 08/30/22 02:49 Urine Nitrite Negative (Negative) 08/30/22 02:49 Urine Bilirubin Negative (Negative) 08/30/22 02:49 Urine Urobilinogen <2.0 mg/dL (<2.0) 08/30/22 02:49 Ur Leukocyte Esterase Moderate (Negative) H 08/30/22 02:49 Urine RBC 2 /hpf (0-5) 08/30/22 02:49 Urine WBC 31 /hpf (0-5) H 08/30/22 02:49 Ur Squamous Epith Cells 8 /hpf (0-4) H 08/30/22 02:49 Amorphous Sediment Rare /hpf (None) H 08/30/22 02:49 Urine Bacteria Occasional /hpf (None) H 08/30/22 02:49 Hyaline Casts 7 /lpf (0-2) H 08/30/22 02:49 Urine Mucus Moderate /hpf (None) H 08/30/22 02:49 Urine HCG, Qual Not Detected (Not Detectd) 08/30/22 02:49 Urine Opiates Screen Not Detected (NotDetected) 08/30/22 02:49 Ur Oxycodone Screen Not Detected (NotDetected) 08/30/22 02:49 Urine Methadone Screen Not Detected (NotDetected) 08/30/22 02:49 Ur Propoxyphene Screen Not Detected (NotDetected) 08/30/22 02:49 Ur Barbiturates Screen Not Detected (NotDetected) 08/30/22 02:49 U Tricyclic Antidepress Not Detected (NotDetected) 08/30/22 02:49 Ur Phencyclidine Scrn Not Detected (NotDetected) 08/30/22 02:49 Ur Amphetamines Screen Not Detected (NotDetected) 08/30/22 02:49 U Methamphetamines Scrn Not Detected (NotDetected) 08/30/22 02:49 U Benzodiazepines Scrn Detected (NotDetected) H 08/30/22 02:49 Urine Cocaine Screen Detected (NotDetected) H 08/30/22 02:49 U Marijuana (THC) Screen Detected (NotDetected) H 08/30/22 02:49 Coronavirus (PCR) Not Detected (Not Detectd) 08/30/22 04:18 Assessment Bipolar 2 disorder, depressive episode Panic disorder PTSD Alcohol use disorder Cocaine abuse Marijuana abuse Rule out cluster B personality disorder Plan: -Patient continues to meet criteria for inpatient psychiatric admission for symptom stabilization and safety. Patient has signed adult voluntary form and medication consent and was placed in patient's chart. -Medications: Continue Abilify 15 mg by mouth daily for mood stabilization. Administer Abilify maintena 300 mg IM today. Discontinue BuSpar Continue Vistaril 50 mg daily at bedtime for insomnia/anxiety Continue prazosin 2 by mouth at bedtime for PTSD related nightmares -When necessary Ativan and Vistaril for agitation/aggression. -NRT - nicotine patch -SW on board for discharge planning. Encouraged the patient to participate in milieu.
[2022-08-31 16:02] LABS: Chol/HDL Ratio 2.43 Ratio; LDL Cholesterol,Calculated 75.2 mg/dL (0.0-131.0); VLDL Calculation 12.54 mg/dL (5.00-40.00)
[2022-08-31 18:43] LABS: Glucose,Whole Blood 106 mg/dL (70-110)
[2022-08-31] MEDS: hydrOXYzine pamoate 25 MG CAP PO SCH (20:53)
[2022-08-31] MEDS: PRAZOSIN 1 MG CAP PO SCH (20:54)
[2022-09-01 00:34] LABS: HCT 31.6 % (34.0-46.0); HGB 10.9 gm/dL (11.4-16.0); MCH 30.3 pg (25.0-35.0); MCHC 34.5 g/dL (31.0-37.0); MCV 87.8 fL (80.0-100.0); Mean Platelet Volume 7.7; Platelet Count 270 k/uL (150-450); RDW 12.6 % (11.5-15.5); WBC 8.5 k/uL (3.8-10.6)
[2022-09-01 00:53] LABS: African American GFR (CKD) >90 (>60 ml/min/1.73 sqM); Anion Gap 5 mmol/L; Blood Urea Nitrogen 13 mg/dL (7-17); Calcium 9.2 mg/dL (8.4-10.2); Carbon Dioxide 24 mmol/L (22-30); Chloride 105 mmol/L (98-107); Glucose 96 mg/dL (74-99); Non-African American GFR(CKD) >90 (>60 ml/min/1.73 sqM); Sodium 134 mmol/L (137-145)
[2022-09-01] MEDS ORDERED: SODIUM CHLORIDE 0.9% 1,000 ML IV ONE (00:59)
[2022-09-01] MEDS ORDERED: SODIUM CHLORIDE 0.9% 1,000 ML IV SCH (01:00)
--- NOTE | 2022-09-01 03:50 | P.PN ---
Progress Note - Text Progress Note Date: 08/31/22 The patient was seen in the mental health unit at 2000 with the MHU RN. The RN notified the typewriter mechanic that the patient had an episode of loss of consciousness at around 6 PM. The patient reports that she had been feeling lightheaded as she had decreased oral intake due to nausea and vomiting throughout the day as well as 5 episodes of loose bowel movements. The patient reportedly speaking on the phone and felt lightheaded and slid down to the ground. She denied hitting her head. There was no reports of shaking movements. Patient is not expressing chest discomfort, palpitations, or shortness of breath. She reports that she has been drinking ample fluids during this time which she has been able to keep down. She denies recent abdominal pain, fever, chills, chest pain, shortness of breath. VS immediatly following the episode were 125/86, pulse 73, respiratory rate 20, and SpO2 98% on room air. CBG was 106 and the patient was afebrile. Physical Examination: General: Non-toxic, in no acute distress, appears stated age, obese HEENT: NC/AT, anicteric sclerae, moist conjunctiva, no lid-lag, PERRLA Cardiovascular: S1/S2 wnl, no murmurs, rubs, or gallops Lungs: Clear to auscultation, normal respiratory effort, no accessory muscle use Abdominal: Soft, non-tender, non-distended, no guarding, rebound, or rigidity Skin: Warm, dry Extremities: No edema or contractures Psychiatric: Alert and oriented to person, place and time, appropriate affect Neuro: No gross focal deficits noted Assessment/Plan Syncope, suspect secondary dehydration from vomiting and diarrhea Labs were initially ordered for the patient and were reviewed. Decision was subs equently made to transfer the patient to the medical service for IVFs and cardiac monitoring The patient refused IV placement as well as EKG or cardiac monitoring. She noted that she is going to continue to drink oral fluids and will consider further testing in the morning. Strict bedrest was advised for the patient.
[2022-09-01] MEDS ORDERED: ONDANSETRON 4 MG TAB PO STA (08:19)
[2022-09-01] MEDS: ARIPiprazole 15 MG TAB PO SCH (08:35)
[2022-09-01] MEDS: NALTREXONE HCL 50 MG TAB PO SCH (08:36)
[2022-09-01] MEDS ORDERED: NICOTINE 14MG/24HR PATCH TRANSDERM SCH (09:00)
[2022-09-01] MEDS ORDERED: VERAPAMIL 2.5 MG/ML 2 ML AMP ONE (09:25)
[2022-09-01] MEDS ORDERED: LIDOCAINE 1% INJ 10MG/ML (20 ML MDV) ONE (09:26)
[2022-09-01] MEDS ORDERED: chlorproMAZINE 25 MG/ML 2 ML AMP IM PRN (11:16)
[2022-09-01] MEDS ORDERED: chlorproMAZINE 25 MG TAB PO PRN (11:16)
[2022-09-01] MEDS ORDERED: LORazepam 2 MG/ML INJ IM PRN (11:17)
--- NOTE | 2022-09-01 11:17 | P.PN ---
Progress Note - Text Progress Note Date: 09/01/22 Interval History: Patient was seen attending group and was directable and agreeable to speak with ticket writer in the office. Currently, the patient is not reporting any suicidal or homicidal ideation, intention, and/or plan. The patient reported that she began feeling nauseous yesterday evening. However, the patient was refusing any diagnostic workup yesterday. This morning, the patient is demanding discharge. She becomes very argumentative and verbally aggressive with this provider demanding discharge. She expresses that she will "flip the f-ck out" if she is not discharged today. Despite stating she is feeling sick and has the "flu" she was able to yell at this provider for 10 minutes. She was informed that exercising appropriate coping skills as necessary to show that she is safe for discharge. She replies "I do not need to f-cking be here and you keeping me here will cause me to freak out." She expresses threats of violence. Once the patient was able to verbally de-escalate, the patient was made aware that her threats of violence and her reaction to stressors contribute to her ongoing cycle of problems including her criminal, mental health, and personal history. She becomes apologetic however continues to demand discharge. Mental Status Exam: General Appearance: Patient appears to be stated age is alert, difficult to direct and uncooperative. Multiple tattoos. Bandages over multiple lacerations. Behavior: Patient displays verbal aggression and psychomotor agitation. Speech: Patient's speech is loud in volume, pressured, and spontaneous. Difficult to interrupt. Mood/Affect: Mood is "I need to leave here f-cking now!" Affect is agitated. Suicidality/Homicidality: Patient reports no suicidal ideation. She threatens violence if not discharged. Perceptions: Patient denies any visual hallucinations and denies any auditory hallucinations Though content/process: Fixated on discharge. Memory and concentration: AOX3, grossly intact for the purposes of this session Judgment and insight: Very poor. Vital Signs Temp 98.0 F 08/31/22 18:46 Pulse 73 08/31/22 18:46 Resp 20 08/31/22 18:46 BP 125/86 08/31/22 18:46 Pulse Ox 98 08/31/22 18:46 FiO2 Laboratory Results - Last 24 Hours 08/31/22 08/31/22 08/31/22 09:03 09:03 18:42 WBC RBC Hgb Hct MCV MCH MCHC RDW Plt Count MPV Sodium Potassium Chloride Carbon Dioxide Anion Gap BUN Creatinine Est GFR (CKD-EPI)AfAm Est GFR (CKD-EPI)NonAf Glucose POC Glucose (mg/dL) 106 POC Glu Gre Tutor ID Mirian Parekh Estimated Ave Glu mg/dL 100 Hemoglobin A1c 5.1 Plasma Lactic Acid Stefano Calcium Triglycerides 62.70 Cholesterol 149.00 LDL Cholesterol, Calc 75.2 VLDL Cholesterol, Calc 12.54 HDL Cholesterol 61.30 H Cholesterol/HDL Ratio 2.43 Coronavirus (PCR) Influenza Type A RNA Influenza Type B (PCR) 09/01/22 09/01/22 09/01/22 00:25 00:25 00:25 WBC 8.5 RBC 3.60 L Hgb 10.9 L Hct 31.6 L MCV 87.8 MCH 30.3 MCHC 34.5 RDW 12.6 Plt Count 270 MPV 7.7 Sodium 134 L Potassium 4.0 Chloride 105 Carbon Dioxide 24 Anion Gap 5 BUN 13 Creatinine 0.60 Est GFR (CKD-EPI)AfAm >90 Est GFR (CKD-EPI)NonAf >90 Glucose 96 POC Glucose (mg/dL) POC Glu Gre Tutor ID Estimated Ave Glu mg/dL Hemoglobin A1c Plasma Lactic Acid Stefano <0.5 L Calcium 9.2 Triglycerides Cholesterol LDL Cholesterol, Calc VLDL Cholesterol, Calc HDL Cholesterol Cholesterol/HDL Ratio Coronavirus (PCR) Influenza Type A RNA Influenza Type B (PCR) 09/01/22 09/01/22 09:20 09:48 WBC RBC Hgb Hct MCV MCH MCHC RDW Plt Count MPV Sodium Potassium Chloride Carbon Dioxide Anion Gap BUN Creatinine Est GFR (CKD-EPI)AfAm Est GFR (CKD-EPI)NonAf Glucose POC Glucose (mg/dL) POC Glu Gre Tutor ID Estimated Ave Glu mg/dL Hemoglobin A1c Plasma Lactic Acid Stefano Calcium Triglycerides Cholesterol LDL Cholesterol, Calc VLDL Cholesterol, Calc HDL Cholesterol Cholesterol/HDL Ratio Coronavirus (PCR) Not Detected Influenza Type A RNA Not Detected Influenza Type B (PCR) Not Detected Assessment Bipolar 2 disorder, depressive episode Panic disorder PTSD Alcohol use disorder Cocaine abuse Marijuana abuse Rule out cluster B personality disorder Plan: -Patient continues to meet criteria for inpatient psychiatric admission for symptom stabilization and safety. Patient has signed adult voluntary form and medication consent and was placed in patient's chart. -Medications: Continue Abilify 15 mg by mouth daily for mood stabilization. Administer Abilify maintena 300 mg IM today. Continue Vistaril 50 mg daily at bedtime for insomnia/anxiety Continue prazosin 2 by mouth at bedtime for PTSD related nightmares -When necessary Ativan and Vistaril for agitation/aggression. -NRT - nicotine patch -SW on board for discharge planning. Encouraged the patient to participate in milieu.
[2022-09-01] MEDS: FERROUS SULFATE 325 MG TAB PO SCH (12:58)
[2022-09-01] MEDS: ACETAMINOPHEN TAB 325 MG TAB PO PRN (16:13)
[2022-09-01] MEDS ORDERED: NICOTINE GUM (POLACRILEX) 2 MG GUM BUCCAL PRN (16:18)
[2022-09-01] MEDS ORDERED: traZODone HCL 100 MG TAB PO SCH (21:00)
[2022-09-01] MEDS: hydrOXYzine pamoate 25 MG CAP PO SCH (21:36)
[2022-09-01] MEDS: PRAZOSIN 1 MG CAP PO SCH (21:36)
[2022-09-01] MEDS: IBUPROFEN 600 MG TAB PO PRN (21:37)
[2022-09-02 06:59] VITALS: BP 131/57; PULSE 110; RESP 18; TEMP 97.4
[2022-09-02] MEDS ORDERED: ONDANSETRON 4 MG TAB PO STA (07:53)
[2022-09-02] MEDS: ARIPiprazole 15 MG TAB PO SCH (08:13)
[2022-09-02] MEDS: NALTREXONE HCL 50 MG TAB PO SCH (08:13)
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
== END 2022-09-02 11:36 | disposition home or self-care (01) | DRG 753 ==
LOC: EC 00:24 → 3MHU 04:52
PROVIDERS: ADMIT Psychiatry & Neurology Psychiatry; ATTEND Psychiatry & Neurology Psychiatry
PROC: 0HQHXZZ Repair Right Upper Leg Skin, External Approach (ICD-10-PCS; principal; 2022-08-30)
DX: F31.81 Bipolar II disorder (principal); R45.851 Suicidal ideations; S71.111A Laceration without foreign body, right thigh, initial encounter; Z20.822 Contact with and (suspected) exposure to COVID-19; F10.10 Alcohol abuse, uncomplicated; F12.10 Cannabis abuse, uncomplicated; F14.10 Cocaine abuse, uncomplicated; F41.0 Panic disorder [episodic paroxysmal anxiety]; F43.10 Post-traumatic stress disorder, unspecified; G47.00 Insomnia, unspecified; F60.89 Other specific personality disorders; F17.290 Nicotine dependence, other tobacco product, uncomplicated; D64.9 Anemia, unspecified; Z65.3 Problems related to other legal circumstances; W13.4XXA Fall from, out of or through window, initial encounter; Z79.899 Other long term (current) drug therapy; R55 Syncope and collapse; R11.2 Nausea with vomiting, unspecified; R19.7 Diarrhea, unspecified; Z91.148 Patient's other noncompliance with medication regimen for other reason; Z91.42 Personal history of forced labor or sexual exploitation; Z88.0 Allergy status to penicillin; Z82.49 Family history of ischemic heart disease and other diseases of the circulatory system; W25.XXXA Contact with sharp glass, initial encounter; Z71.41 Alcohol abuse counseling and surveillance of alcoholic; Z71.51 Drug abuse counseling and surveillance of drug abuser
CPT/HCPCS: 80048; 80061; 80306; 81001; 81025; 82075; 83036; 83605; 84443; 85027; 87502; 87635; 93005; 99285